=== PATIENT | female | born 1945 | race Caucasian/White ===

== ENCOUNTER 2021-05-07 13:35 | Outpatient (CLI) | payer MEDICARE, OTHER, SELFPAY ==
--- NOTE | ~2021-05-07 | MM_ITS ---
EXAMINATION: MM screening wu BI w jamar HISTORY: Screening mammogram TECHNIQUE: Craniocaudal and mediolateral oblique 3-D tomosynthesis images were obtained and synthetic 2-D images were generated. CAD analysis was submitted and interpreted. COMPARISON: No prior mammogram is available for comparison at this institution. BREAST PARENCHYMAL COMPOSITION: The breasts are almost entirely fatty. FINDINGS: RIGHT BREAST: There is no evidence of suspicious mass, calcification, or architectural distortion to suggest malignancy. LEFT BREAST: There is possible architectural distortion in the middle third of the lower-outer breast . IMPRESSION: 1. Possible left breast architectural distortion which may represent the patient's baseline however n o comparison is currently available. 2. Comparison with prior mammograms is necessary. BI-RADS Category 0: Incomplete: Needs comparison with prior mammograms. Reviewed, dictated and finalized at location A. IMPRESSION: 1. Possible left breast architectural distortion which may represent the patien t's baseline however no comparison is currently available. 2. Comparison with prior mammograms is necessary. BI-RADS Category 0: Incomplete: Needs comparison with prior mammograms.
== END 2021-05-07 13:36 | disposition home or self-care (01) ==
LOC: ANHIMG 13:47
DX: Z12.31 Encounter for screening mammogram for malignant neoplasm of breast (principal); R92.8 Other abnormal and inconclusive findings on diagnostic imaging of breast
CPT/HCPCS: 77063; 77067

== ENCOUNTER 2022-02-02 11:18 | Outpatient (CLI) | payer MEDICARE, SELFPAY ==
--- NOTE | ~2022-02-02 | XR_ITS ---
EXAMINATION: XR foot LT standing 2V, XR foot RT standing 2V DATE: 02/02/2022 11:40 INDICATION: Bilateral foot pain TECHNIQUE: 1. Standing dorsal plantar and lateral views of the left foot were obtained. 2. Standing dorsal plantar and lateral views of the right foot were obtained. COMPARISON: None. FINDINGS: Alignment is normal at both feet. No fracture. Mild osteoarthritis at the bilateral first metacarpoph alangeal and a few tarsometatarsal and interphalangeal joints. Moderate-sized bilateral plantar calca bruce spurs and additional small enthesophytes at the calcaneal insertions of the distal quadriceps te ndons. No erosions or periosteal reaction. Soft tissues are unremarkable. IMPRESSION: 1. 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 No acute osseous abnormality. Reviewed, dictated and finalized at location B. IMPRESSION: 1. 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 No acut e osseous abnormality.
== END 2022-02-02 11:19 | disposition home or self-care (01) ==
LOC: ANHIMG 11:24
PROVIDERS: PCP Internal Medicine; Visit Provider Internal Medicine
DX: M19.071 Primary osteoarthritis, right ankle and foot (principal); M19.072 Primary osteoarthritis, left ankle and foot
CPT/HCPCS: 73620

== ENCOUNTER 2022-03-20 14:30 | Outpatient (RCR) | payer MEDICARE, SELFPAY ==
--- NOTE | 2022-02-27 11:14 | PTOPEVAL ---
PHYSICAL THERAPY EVALUATION AND PLAN OF CARE 02-27-22 Thank you for referring Irene Carlos to [facility] for the diagnosis of B plantar fasciitis. Irene is scheduled to be seen for therapy? 2 x/week for 3 weeks. Please review, sign, date and return this plan of care TONYA. I agree with and certify that the following plan of care is medically necessary. Referring Physician Date Attending Provider: Mika Winter DPM Past Medical History Source of Past Medical History Patient Neurological History Hx Neurological Disorders No Significant History Cardiovascular History Hx Hypercholesterolemia Yes: meds control Hx Hypertension Yes: meds control Respiratory History Hx Respiratory Disorders No Significant History Gastrointestinal History Hx Gastrointestinal Disorders No Significant History Genitourinary History Hx Genitourinary Disorders No Significant History Musculoskeletal History Hx Arthritis Yes: stiffness B hips Hx Other Musculoskeletal Disorders Yes: plantar fascitis Endocrine History Hx Endocrine Disorders No Significant History Reproductive History Hx Other Reproductive Disorders Yes: hysterectomy- endometrial cancer-no additional treatment needed Evaluation Information Diagnosis B plantar fascia Onset Dec 2021 Subjective Information pain for the past few years Query Text:As Reported By Patient/ with feet; Family Diagnostic Tests X-Rays For This Problem Yes: mild OA 1st MCP;B mod size plantar calcaneal spurs Previous Treatments Previous Treatments For This Problem no previous treatment Prior Level of Function Activity Level (Last 3 Months) Occupation retired Activity of Daily Living Ability Independent Indoor/Home Mobility Independent Community Mobility Independent Stairs Ability Independent Functional Cognition (Planning, Shopping Independent , Taking Medications) Cooking Yes Cleaning Yes Laundry Yes Shopping Yes Driving Yes Comments Additional Prior Level of Function walking is limited due to pain Comments in both feet; has been walking for fitness and weight loss; previous walking 2 miles, 3-4 x/wk; now is not walking for fitness due to foot pain; is doing ankle exercises from foot dr--stretching calf and legs,just received them, done a few times; Pain A
--- NOTE | 2022-03-11 12:32 | PCPTNOTE ---
Patient called & cancelled scheduled appointment this date due to her allergies.
--- NOTE | 2022-03-20 15:29 | PTOPEVAL ---
PHYSICAL THERAPY DISCHARGE REPORT 03-20-22 Refer to the clinical summary below, for her status today, compared to the initial evaluation. The goals were partially achieved; Irene is independent with her home exercise program and understands methods to manage her pain. Thank you for referring Irene Carlos to [facility].? Please review, sign, date and return this Discharge report TONYA. I agree with and certify that the following plan of care is medically necessary. Referring Physician Date Attending Provider: Mika Winter DPM Subjective Information Irene reports: have improved Query Text:As Reported By Patient/ with the exercises, ice, Family ultrasound and therapy, but not back to doing walking for fitness; walking and being up on feet causes pain; taking less ibuprofen, was taking 2x/ day, now taking 2x/wk and mainly for L hip; tape does help some; Pain Assessment Pain Scale Pain Scale Used Numeric (1 - 10) Self Report Pain Assessment Bilateral Foot/Feet Reported Pain Level 0 Pain Description Burning,Stabbing Radicular Pain Location L foot- little on bottom of heel Pain Frequency Chronic,Intermittent Other Pain Description electrical jolt; R medial ankle, back of heel and bottom heel; Lowest Pain Intensity 0 Greatest Pain Intensity 8 Other Pain Aggravating Factors walking/stand tolerance 1 hour Pain Score Pain Score 0: Self Report Additional Pain Score Comments not sure if kinesiotape is helping or not; have not been using the night splints, due to warmer weather and could not tolerate them kinesiotape helps--applied strip R med>heel>lateral malleoli and L plantar fasciitis Y to bottom of foot; educated pt on how to apply tape; Interventions Used Interventions Used By Clinicians Education,Exercise,Taping Other Alleviating Interventions stretching,frozen water bottle ; ultrasound, ibuprofen PRN- few times a wk Gross Lower Extremity Range of Motion B ankle and toe ROM is WNL and Comments without pain Gross Lower Extremity Strength functional strength testing of B ankles: - standing B PF 20 reps with
== END 2022-03-23 11:14 | disposition home or self-care (01) ==
LOC: ANHPT 14:30
PROVIDERS: PCP Internal Medicine; Visit Provider Podiatrist Foot & Ankle Surgery
DX: M72.2 Plantar fascial fibromatosis (principal)
CPT/HCPCS: 97035; 97110; 97161

== ENCOUNTER 2022-06-17 10:08 | Outpatient (CLI) | payer MEDICARE, SELFPAY ==
--- NOTE | ~2022-06-17 | DEXA_ITS ---
Bone Density Report Name: ABDIFATAH WALDROP Age: 76 Sex: Female Ethnicity: White Date of : 1945 Indication: postmenopausal; screening for osteoporosis; parental hip fracture; height loss; cancer; hysterectomy; Referring Provider: KEIRY DUARTE Study: Bone densitometry was performed. Exam Date: June 17, 2022 Accession number: [id number] Bone Density: Region BMD T-score Z-score Classification AP Spine(L1-L4) 0.944 -0.9 1.5 Normal Femoral Neck (Left) 0.663 -1.7 0.4 Osteopenia Total Hip (Left) 0.797 -1.2 0.6 Osteopenia Femoral Neck (Right) 0.661 -1.7 0.4 Osteopenia Total Hip (Right) 0.808 -1.1 0.7 Osteopenia Total Hip Mean 0.803 -1.2 0.7 Osteopenia World Health Organization criteria for BMD impression classify patients as: Normal (T-score at or above -1.0), Osteopenia (T-score between -1.0 and -2.5), or Osteoporosis (T-score at or below -2.5). 10-year Fracture Risk(1): Major Osteoporotic Fracture 19% Hip Fracture 9.9% Reported Risk Factors: [place] (), Neck BMD=0.663, BMI=32.0, parental fracture (1) FRAX(R) Version 3.08. Fracture probability calculated for an untreated patient. Fracture probability may be lower if the patient has received treatment. Clinical Information Provided by Patient: Parent has had a hip fracture Has used the following medications: Vitamin D, Calcium Has the following medical conditions: Cancer, Hysterectomy Patient maximum height was 63.5 Menopause Age: 53 Onset of menses at age 13 Number of children 1 Impression: The patient has low bone mass, based on the Left Femoral Neck T-score. The patient has an estimated ten-year risk of hip fracture of 9.9% and an estimated ten-year risk of major fracture of 19%, based on the WHO FRAX algorithm. The patient has risk factors, including: parental hip fracture. Discussion: BONE DENSITY IS LOW AT ONE OR MORE SKELETAL SITES. THE PATIENT'S BMD AND CLINICAL RISK FACTORS CONTRIBUTE TO THIS PATIENT'S INCREASED RISK OF FRACTURE. This patient's lowest T-score is low at one or more skeletal sites. It meets the World Health Organization's (WHO) criteria for ?low bone mass? (T-score between -1.0 and -2.5). The patient's 10-year risk of hip fracture as calculated by FRAX exceeds the threshold where pharmacological therapy is recommended by the National Osteoporosis Foundation (NOF). However, all treatment decisions require clinical judgment and consideration of individual patient factors, including patient preferences, comorbidities, previous drug use, risk factors not captured in the FRAX model (e.g., frailty, falls, vitamin D deficiency, increased bone turnover, interval significant decline in bone density) and possible under or overestimation of fracture risk by FRAX. The patient should follow a healthful lifest
--- NOTE | ~2022-06-17 | MM_ITS ---
EXAMINATION: MM screening wu BI w jamar HISTORY: Screening mammogram TECHNIQUE: Craniocaudal and mediolateral oblique 3-D tomosynthesis images were obtained and synthetic 2-D images were generated. CAD analysis was submitted and interpreted. COMPARISON: 05/07/2021, 04/18/2020, 01/23/2019 bilateral screening mammogram examinations BREAST PARENCHYMAL COMPOSITION: The breasts are almost entirely fatty. FINDINGS: Scattered bilateral benign calcifications. There is no evidence of suspicious mass, calcifi cation, or architectural distortion to suggest malignancy in either breast. There has been no suspici ous interval change. IMPRESSION: 1. No mammographic evidence of malignancy. 2. Recommend routine screening mammography in one year. BI-RADS Category 2: Benign finding(s). Reviewed, dictated and finalized at location A.
== END 2022-06-17 10:09 | disposition home or self-care (01) ==
PROVIDERS: Visit Provider Student in an Organized Health Care Education/Training Program
DX: Z12.31 Encounter for screening mammogram for malignant neoplasm of breast (principal); Z78.0 Asymptomatic menopausal state; M85.851 Other specified disorders of bone density and structure, right thigh; M85.852 Other specified disorders of bone density and structure, left thigh
CPT/HCPCS: 77063; 77067; 77080

== ENCOUNTER 2022-09-15 00:08 | Day surgery (SDC) | payer MEDICARE, SELFPAY ==
[2022-09-07 13:28] VITALS: BMI 32.2
[2022-09-15 08:46] VITALS: BP 154/79; PULSE 74; RESP 16; TEMP 36.4; O2SAT 100
[2022-09-15] MEDS: LACTATED RINGERS 1,000 ML 150 ML IV CONT (08:48)
--- NOTE | 2022-09-15 09:10 | WPDANESEPPF ---
Anes - Initial Pre Proc Eval Procedure: Operation Date: 09/15/22 10:00 Proposed Procedures p Screening Colonoscopy - Osvaldo Alba MD Date/Time: 09/15/22 09:10 Surgeon: Osvaldo Alba MD Pre Op Diagnosis: hx of colon polyps Patient Data Age: 76 Gender: F Height: 1.59 m Weight: 80.7 kg Last Vital Signs Temp 97.5 F L 09/15/22 08:46 Pulse 74 09/15/22 08:46 Resp 16 09/15/22 08:46 BP 154/79 H 09/15/22 08:46 Pulse Ox 100 09/15/22 08:46 O2 Del Method Room Air 09/15/22 08:46 Allergies Allergy/AdvReac Type Severity Reaction Status Date / Time Penicillins Allergy Severe Hives Verified 09/15/22 08:44 Home Medications Medication Instructions Recorded Confirmed Type calcium carbonate 600 mg calcium 600 mg PO DAILY 06/04/21 09/15/22 History (1,500 mg) tablet (Calcium) cholecalciferol (vitamin D3) 25 25 mcg PO DAILY 06/04/21 09/15/22 History mcg (1,000 unit) capsule montelukast 10 mg tablet 10 mg PO DAILY #90 tabs 02/09/22 09/15/22 Rx azelastine 137 mcg (0.1 %) nasal 137 mcg (0.137 mL) intranasal Q12H 07/31/22 09/15/22 Rx spray aerosol PRN seasonal allergies #30 mL simvastatin 40 mg tablet 40 mg PO DAILY #90 tabs 07/31/22 09/15/22 Rx lisinopril 30 mg tablet 30 mg PO DAILY #30 tabs 09/10/22 09/15/22 Rx Patient hx anesthesia problems: none Family hx anesthesia problems: none Results Review: All pre-operative results and documents have been reviewed as part of the pre-operative evaluation. [facility] Past Medical History Medical History (Updated 09/10/22 @ 10:58 by Abdelrahman Armstrong MD) Colon polyp Essential hypertension History of 1 History of endometrial cancer Hx of vaginal delivery Neuropathy Seasonal allergies Surgical History Surgical History H/O: hysterectomy Family History Family History Father Lung cancer Hypertension Mother Depression Anxiety Other Breast cancer Stomach cancer Social History Social History Smoking status: Never smoker Second hand tobacco smoke exposure: Yes Alcohol intake: current Alcohol use details: once per month Substance use: never Substance use type: does not use Lack of Transportation: No Lack of Food: Never True Current Housing: I Have Housing Concerned About Future Housing: No Difficulty Paying Gas/Electric Bills: No Difficulty Paying for Meds: No Currently Unemployed: No Education: Bachelor's Degree Difficulty w/ Childcare or Family Care: No Living arrangements: with family Gender identity (if verbalized by the patient): Female Anes - Eval Final PreProcedure Day of Procedure 09/15/22 09:10 Patient weight: obese Heart: regular rate and rhythm Lungs: clear to auscultation Airway: Mallampati scale class II Neurological: alert and oriented Last oral intake: >/= 8 hours ASA classification: III Emergent: no Anesthetic plan: proceed Anesthesia type and monitoring: general GIVS and standard monitoring Results Review: All pre-operative results and documents have been reviewed as part of the pre-operative evaluation. Informed Consent: The patient's anesthetic plan and its attendant risks and benefits were discussed with the patient/family/POA. Questions were solicited and answers provided to the satisfaction of the patient/family/POA.
--- NOTE | 2022-09-15 09:26 | PM.HPGS ---
History of Present Illness History of Present Illness Consent: Risks, benefits, and alternatives have been discussed and questions answered. Patient agrees to proceed with procedure. Chief complaint: hx of colon polyps Narrative: Irene Carlos is a 76 year old female with colon polyps 3 years ago Review of Systems Constitutional: Constitutional: Denies headache(s) and Denies weakness Eyes: Eyes: Denies blurry vision ENT: Reports Normal hearing present, Denies headache(s) and Denies neck pain Cardiovascular: Cardiovascular: Denies chest pain and Denies dyspnea Respiratory: Respiratory: Denies dyspnea Gastrointestinal: Gastrointestinal: Reports no additional gastrointestinal complaints Genitourinary: Genitourinary: Denies dysuria Musculoskeletal: Musculoskeletal: Denies neck pain Integumentary/Breasts: Skin/Breast: Denies dry skin Neurologic: Reports Normal hearing present, Denies headache(s) and Denies weakness Psychiatric: Psychiatric: Denies anxiety Endocrine: Endocrine: Denies change in body appearance Hematologic/Lymphatic: Hematologic/Lymphatic: Denies easy bleeding Allergic/Immunologic: Allergic/Immunologic: Denies urticaria PMFSH Past Medical History Medical History (Updated 09/15/22 @ 09:26 by Osvaldo Alba MD) Colon polyp Essential hypertension History of 1 History of endometrial cancer Hx of vaginal delivery Neuropathy Seasonal allergies Surgical History Surgical History H/O: hysterectomy Family History Family History Father Lung cancer Hypertension Mother Depression Anxiety Other Breast cancer Stomach cancer Social History Social History Smoking status: Never smoker Second hand tobacco smoke exposure: Yes Alcohol intake: current Alcohol use details: once per month Substance use: never Substance use type: does not use Lack of Transportation: No Lack of Food: Never True Current Housing: I Have Housing Concerned About Future Housing: No Difficulty Paying Gas/Electric Bills: No Difficulty Paying for Meds: No Currently Unemployed: No Education: Bachelor's Degree Difficulty w/ Childcare or Family Care: No Living arrangements: with family Gender identity (if verbalized by the patient): Female Meds Home Medications and Allergies Home Medications Medication Instructions Recorded Confirmed Type calcium carbonate 600 mg calcium 600 mg PO DAILY 06/04/21 09/15/22 History (1,500 mg) tablet (Calcium) cholecalciferol (vitamin D3) 25 25 mcg PO DAILY 06/04/21 09/15/22 History mcg (1,000 unit) capsule montelukast 10 mg tablet 10 mg PO DAILY #90 tabs 02/09/22 09/15/22 Rx azelastine 137 mcg (0.1 %) nasal 137 mcg (0.137 mL) intranasal Q12H 07/31/22 09/15/22 Rx spray aerosol PRN seasonal allergies #30 mL simvastatin 40 mg tablet 40 mg PO DAILY #90 tabs 07/31/22 09/15/22 Rx lisinopril 30 mg tablet 30 mg PO DAILY #30 tabs 09/10/22 09/15/22 Rx Allergies Allergy/AdvReac Type Severity Reaction Status Date / Time Penicillins Allergy Severe Hives Verified 09/15/22 08:44 Vital Signs Vital Signs - 24 hr 09/15/22 08:46 Temperature 97.5 F L Pulse Rate 74 Respiratory Rate 16 Blood Pressure 154/79 H Pulse Oximetry 100 Oxygen Delivery Room Air Exam Const: General: comfortable and no acute distress HENMT: Face/Nose/Sinus: Normal nares present Eyes: General: appearance normal, both eyes and all related structures Neck: Neck: no JVD Resp: Auscultation: clear to auscultation bilaterally Cardio: Rate: regular rate Rhythm: regular rhythm GI: Inspection: non-distended GI Palp: Yes Soft to palpation Skin: General skin exam: normal color Neuro: General: gait normal Speech: normal speech Extrem: General: normal to inspectio
[2022-09-15 09:47] VITALS: BP 154/86; PULSE 87; RESP 22; O2SAT 96
[2022-09-15 09:57] VITALS: BP 112/74; PULSE 73; RESP 16; O2SAT 100
[2022-09-15 10:07] VITALS: BP 131/78; PULSE 70; RESP 12; O2SAT 100
== END 2022-09-15 10:10 | disposition home or self-care (01) ==
PROVIDERS: PCP Internal Medicine; Visit Provider Internal Medicine Gastroenterology
PROC: 0DJD8ZZ Inspection of Lower Intestinal Tract, Via Natural or Artificial Opening Endoscopic (ICD-10-PCS; CPT 45378; principal; 2022-09-15 10:00)
DX: Z12.11 Encounter for screening for malignant neoplasm of colon (principal); D12.2 Benign neoplasm of ascending colon; K57.30 Diverticulosis of large intestine without perforation or abscess without bleeding; K64.8 Other hemorrhoids; I10 Essential (primary) hypertension; G62.9 Polyneuropathy, unspecified; Z85.42 Personal history of malignant neoplasm of other parts of uterus; E66.9 Obesity, unspecified; Z68.32 Body mass index [BMI] 32.0-32.9, adult
CPT/HCPCS: 45385; 88305; J2704; J7120

== ENCOUNTER 2023-06-07 09:45 | Outpatient (RCR) | payer MEDICARE, SELFPAY ==
--- NOTE | 2023-05-21 09:39 | OTOPEVAL1 ---
Assessment and note entered by Alexander Frias, KOBY/Lb, CHT Evaluation Information Assessment Status Evaluation Diagnosis Pain in unspecified finger Subjective Information Patient presenting today reporting pain in her right thumb. She is right hand dominant. She states she experiences pain daily and that the pain hasn't gotten down to 0/10 for a while . She uses her hands frequently to quilt, sewing, holding her iPad, and cooking. Reports today is a good day , having low amount of pain. But states it does flair up and she has used ice on her hand in the past. Reported Pain Level Pain Score 2: Self Report Assessment OT Clinical Summary Patient referred to outpatient OT with pain in her right thumb. Pain is consistent with OA. 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 Skilled OT indicated for HEP instruction/progression, modalities, manual therapy, orthotic intervention for thumb support during functional tasks, and joint protection education. Plan of Care Interventions Therapeutic Exercise,Manual Therapy,Therapeutic Activities,Hot Pack/Cold Pack,Check Out for Orthotic/Pr,Paraffin OT Services Indicated Yes Treatment Frequency and 1x/week for 4 weeks Duration These treatments will address the objective and functional deficits as defined above. The patient will be advanced safely and appropriately in order for the patient to progress towards his/her prior level of function. Additional exercises will be introduced and as well as a comprehensive home exercise program upon discharge, if needed, ?to ensure carryover of functional gains achieved in the clinic. This treatment plan has been reviewed and agreement upon by the patient.
--- NOTE | 2023-05-21 09:39 | OPREHPOC ---
Outpatient Therapy Plan of Care This is a Multidisciplinary Plan of Care that may contain components documented by all disciplines (PT, OT, and ST.) OT Problem 1 OT Problem #1 Knowledge Deficit OT Goal 1 Goal 1. Patient to be independent with instructed materials. Target Visit 5 OT Problem 2 OT Problem #2 Pain OT Goal 1 Goal 1. Patient to report reduced pain in the right thumb, reporting pain at worst 4/10 or less. Target Visit 5 OT Problem 3 OT Problem #3 Impaired Range of Motion OT Goal 1 Goal 1. Patient to be able to move thumb through ROM exercises x10 reps without pain. Target Visit 5
--- NOTE | 2023-06-07 10:39 | OTOPDC ---
Assessment and note entered by Alexander Frias, KOBY/Lb, CHT Evaluation Information Assessment Status Discharge Diagnosis Right thumb pain Subjective Information Patient presenting today reporting she is doing well with therapy and understands her home program well and is ready for discharge. She reports instances of having no pain in the thumb. Reports progress with therapy so far. ROM and service station manager/pinch strengths are all WFL. Reported Pain Level Pain Score 1: Self Report Additional Pain Score Comments Typically having no pain at rest. Occasionally gets up to 3/10 at worst Assessment OT Clinical Summary Patient referred to outpatient OT with pain in her right thumb. Pain is consistent with OA. OT has been working on improved flexibility of the 1st web space and CMC stabilization exercises. She is overall having less pain, but continues to have 3/ /10 pain with sewing and embroidery. She reports she is independent with all materials and is ready for discharge. No further skilled OT indicated at this time. Plan of Care OT Services Indicated No
== END 2023-06-07 13:08 | disposition home or self-care (01) ==
LOC: ANHOT 09:45
PROVIDERS: PCP Family Medicine; Visit Provider Family Medicine
DX: M79.646 Pain in unspecified finger(s) (principal)
CPT/HCPCS: 97018; 97110; 97140; 97165

== ENCOUNTER 2023-09-28 09:52 | Outpatient (CLI) | payer MEDICARE, SELFPAY ==
--- NOTE | ~2023-09-28 | MM_ITS ---
EXAMINATION: MM screening wu BI w jamar HISTORY: Screening mammogram TECHNIQUE: Craniocaudal and mediolateral oblique 3-D tomosynthesis images were obtained and synthetic 2-D images were generated. CAD analysis was submitted and interpreted. COMPARISON: No prior mammogram is available for comparison at this institution. BREAST PARENCHYMAL COMPOSITION: The breasts are almost entirely fatty. FINDINGS: Scattered bilateral benign calcifications. There is no evidence of suspicious mass, calcifi cation, or architectural distortion to suggest malignancy in either breast. There has been no suspici ous interval change. IMPRESSION: 1. No mammographic evidence of malignancy. 2. Recommend routine screening mammography in one year. BI-RADS Category 2: Benign finding(s). Reviewed, dictated and finalized at location A. NING PROGRAM ASSISTANT
== END 2023-09-28 09:53 | disposition home or self-care (01) ==
PROVIDERS: PCP Family Medicine; Visit Provider Registered Nurse
DX: Z12.31 Encounter for screening mammogram for malignant neoplasm of breast (principal)
CPT/HCPCS: 77063; 77067

== ENCOUNTER 2024-11-14 10:07 | Outpatient (CLI) | payer MEDICARE, SELFPAY ==
--- NOTE | ~2024-11-14 | MM_ITS ---
EXAMINATION: MM screening wu BI w jamar HISTORY: Screening mammogram TECHNIQUE: Craniocaudal and mediolateral oblique 3-D tomosynthesis images were obtained and synthetic 2-D images were generated. CAD analysis was submitted and interpreted. COMPARISON: 09/28/2023, 06/17/2022, 05/07/2021 BREAST PARENCHYMAL COMPOSITION:Not Dense. The breasts are almost entirely fatty FINDINGS: No suspicious mass, calcification, or architectural distortion are identified in either vishal ast to suggest malignancy. There has been no suspicious interval change. IMPRESSION: No mammographic evidence of malignancy. Recommend routine screening mammography in one year. BI-RADS Category 1: Negative Reviewed, dictated and finalized at location . ALT HEATER OPERATOR
== END 2024-11-14 10:08 | disposition home or self-care (01) ==
PROVIDERS: PCP Family Medicine; Visit Provider Nurse Practitioner Obstetrics & Gynecology
DX: Z12.31 Encounter for screening mammogram for malignant neoplasm of breast (principal)
CPT/HCPCS: 77063; 77067

== ENCOUNTER 2024-11-20 10:42 | Outpatient (CLI) | payer MEDICARE, OTHER, SELFPAY ==
--- NOTE | ~2024-11-20 | XR_ITS ---
EXAMINATION: XR sacrum coccyx min 2V DATE: 11/20/2024 10:59 INDICATION: Sacrococcygeal disorders, not elsewhere classified. TECHNIQUE: 3 views of the sacrum and coccyx were obtained. COMPARISON: None. FINDINGS: Alignment is normal. No fracture. There is severe lumbar spondylosis. There is mild osteoar thritis of the hip joints and sacroiliac joints. There are surgical clips in the abdomen and pelvis. IMPRESSION: 1. No fracture. Reviewed, dictated and finalized at location B. CLE LEASING AND RENTAL MANAGER IMPRESSION: 1. No fracture.
== END 2024-11-20 10:43 | disposition home or self-care (01) ==
LOC: MICIMG 10:45
PROVIDERS: PCP Family Medicine; Visit Provider Family Medicine
DX: M53.3 Sacrococcygeal disorders, not elsewhere classified (principal)
CPT/HCPCS: 72220

== ENCOUNTER 2024-12-27 07:51 | Outpatient (CLI) | payer MEDICARE, SELFPAY ==
--- NOTE | ~2024-12-27 | DEXA_ITS ---
Bone Density Report Name: ABDIFATAH WALDROP Age: 79 Sex: Female Ethnicity: White Date of : 1945 Indication: osteopenia; parental hip fracture; hysterectomy; Referring Provider: JOSUÉ LUCIANO Study: Bone densitometry was performed. Exam Date: December 27, 2024 Accession number: [id number] Bone Density: Region BMD T-score Z-score Classification AP Spine(L1-L4) 1.026 -0.2 2.4 Normal Femoral Neck (Left) 0.704 -1.3 0.9 Osteopenia Total Hip (Left) 0.876 -0.5 1.4 Normal Femoral Neck (Right) 0.706 -1.3 0.9 Osteopenia Total Hip (Right) 0.826 -1.0 1.0 Normal Total Hip Mean 0.851 -0.8 1.2 Normal World Health Organization criteria for BMD impression classify patients as: Normal (T-score at or above -1.0), Osteopenia (T-score between -1.0 and -2.5), or Osteoporosis (T-score at or below -2.5). 10-year Fracture Risk(1): Major Osteoporotic Fracture 19% Hip Fracture 9.5% Reported Risk Factors: [place] (), Neck BMD=0.704, BMI=32.4, parental fracture (1) FRAX(R) Version 3.08. Fracture probability calculated for an untreated patient. Fracture probability may be lower if the patient has received treatment. Previous Exams: Region Exam Age BMD T-score BMD Change BMD Change Date g/cm2 vs Baseline vs Previous AP Spine (L1-L4) 12/27/2024 79 1.026 -0.2 0.082 (8.7%)# 0.082 (8.7%)# 06/17/2022 76 0.944 -0.9 Total Hip(Left) 12/27/2024 79 0.876 -0.5 0.079 (9.9%)# 0.079 (9.9%)# 06/17/2022 76 0.797 -1.2 Total Hip(Right) 12/27/2024 79 0.826 -1.0 0.017 (2.2%)# 0.017 (2.2%)# 06/17/2022 76 0.808 -1.1 *Denotes significance at 95% confidence level, LSC for AP Spine = 0.022 g/cm2, LSC for Total Hip = 0.027 g/cm2 # Denotes dissimilar scan types or analysis methods Clinical Information Provided by Patient: Parent has had a hip fracture Has used the following medications: Vitamin D, Calcium Has the following medical conditions: Hysterectomy Patient maximum height was 63 Menopause Age: 53 Drinks caffeinated beverages Onset of menses at age 13 Number of children 1 Impression: The patient has low bone mass, based on the Left Femoral Neck T-score. The patient has an estimated ten-year risk of hip fracture of 9.5% and an estimated ten-year risk of major fracture of 19%, based on the WHO FRAX algorithm. The patient has risk factors, including: parental hip fracture. No significant bone loss was observed. Discussion: BONE DENSITY IS LOW AT ONE OR MORE SKELETAL SITES. THE PATIENT'S BMD AND CLINICAL RISK FACTORS CONTRIBUTE TO THIS PATIENT'S INCREASED RISK OF FRACTURE. This patient's lowest T-score is low at one or more skeletal sites. It meets the World Health Organization's (WHO) criteria for ?low bone mass? (T-score between -1.0 and -2.5). The patient's 10-year risk of hip fracture as calculated by FRAX exceeds the threshold where pharmacological therapy is recommended by the National Osteoporosis Foundation (NOF). However, all treatment decisions require clinical judgment and consideration of individual patient factors, including patient preferences, comorbidities, previous drug use, risk factors not captured in the FRAX model (e.g., frailty, falls, vitamin D deficiency, increased bone turnover, interval significant decline in bone density) and possible under or overestimation of fracture risk by FRAX. The patient should follow a healthful lifestyle (good nutrition with adequate calcium and vitamin D, and appropriate weight-bearing exercise). Follow-Up: Consider a repeat BMD and Vertebral Fracture Assessment (VFA) exam in 2 years or sooner if medically necessary, to reassess this patient's status. Reported by: LAURI on 12/27/2024 8:25:00 AM. Reviewed, dictated and finalized at location A. DENG
--- OUTSIDE RECORDS SUMMARY | 2024-12-27 08:00 | XMS_ITS | Clinical Summary ---
Author Organization [facility] Address [address] [place] [address] Phone Care Team Providers Care Product Development Consultant Name Role Phone Hari Diaz MD Primary Care Provider Medications sodium, potassium and magnesium sulfates (SUPREP BOWEL PREP KIT) 17.5-3.13-1.6 gram Recon Soln Take 177 mL by mouth see administration instructions. Take as directed by instructions given in the mail. 354 mL 9 Active Family History Medical History Relation Name Comments Breast Cancer Maternal Aunt Colon Cancer Neg Hx Relation Name Status Comments Maternal Aunt Social History Tobacco Use Types Packs/Day Years Used Date Smoking Tobacco: Never Assessed Comments Unknown Sex and Gender Information Value Date Recorded Sex Assigned at Not on file Legal Sex Female 5:09 PM [employer] Gender Identity Not on file Sexual Orientation Not on file Plan of Treatment Health Maintenance Due Date Last Done Comments DTAP/TDAP/TD VACCINES (1 - Tdap) 1965 PNEUMOCOCCAL VACCINE 65+ YEA RS (1 of 1 - PCV) 1996 ZOSTER VACCINE (1 of 2) 1996 RSV VACCINE (60+ or ) (1 - 1-dose 75+ series) 2021 COLORECTAL SCREENING 09/04/2022 09/04/2019, 09/04/20 19 INFLUENZA VACCINE (#1) 2024 OSTEOPOROSIS SCREENING Completed 02/28/2019 Procedures Procedure Name Priority Date/Time Associated Diagnosis Comments ENDOSCOPY, COLON, SCREENING Routine 09/04/2019 XR DEXA BONE DENSITY AXIAL 1 OR MORE SITES Routine 02/28/2019 9:38 AM CDT Osteopenia of spine from Last 3 Months or Most Recently Relevant to Health Maintenance Results * ENDOSCOPY, COLON, SCREENING (09/04/2019) Jerome Venegas MD GI PROCEDURE ORDERABLES Fin al Result * XR DEXA BONE DENSITY AXIAL 1 OR MORE SITES (02/28/2019 9:38 AM CDT) Anatomical Region Laterality Modality Computed Radiogr aphy 02/28/2019 9:39 AM CDT Impressions 02/28/2019 2:09 PM CDT IMPRESSION: 1. Osteopenia. DICTATION LOCATION: [address] [place] Narrative 02/28/2019 2:09 PM CDT DEXA BONE DENSITOMETRY DATE: 02/28/2019 9:38 AM HISTORY: . Postmenopausal. Currently taking calcium supplementation. Caffeine/alcohol consumption. Family history of osteoporosis. COMPARISON: 10/19/2012 FINDINGS: Left femoral neck and total femur bone mineral density are 0.7383 g/sq cm and 0.8278 g/sq cm with respective T-scores of -2.13 and -1.04. Total femur bone mineral density has decreased by 1.3% since 10/19/2012. Left femoral neck bone mineral density has decreased by 3.7%. Total lumbar spine bone mineral density is 0.9918 g/sq cm with a T-score of -1.04. Total lumbar spine bone mineral density has increased by 3.1% since 10/09/2012. These T-scores are considered osteopenic according to World Health Organization classification. Procedure Note Power Valle MD - 02/28/2019 DEXA BONE DENSITOMETRY DATE: 02/28/2019 9:38 AM HISTORY: . Postmenopausal. Currently taking calcium supplementation. Caffeine/alcohol consumption. Family history of osteoporosis. COMPARISON: 10/19/2012 FINDINGS: Left femoral neck and total femur bone mineral density are 0.7383 g/sq cm and 0.8278 g/sq cm with respective T-scores of -2.13 and -1.04. Total femur bone mineral density has decreased by 1.3% since 10/19/2012. Left femoral neck bone mineral density has decreased by 3.7%. Total lumbar spine bone mineral density is 0.9918 g/sq cm with a T-score of -1.04. Total lumbar spine bone mineral density has increased by 3.1% since 10/09/2012. These T-scores are considered osteopenic according to World Health Organization classification. IMPRESSION: 1. Osteopenia. DICTATION LOCATION: Location [address] [place] [address] Hari Diaz MD DIAGNOSTIC IMAGING ORDERABLE S Final Result from Last 3 Months or Most Recently Relevant to Health [place] [address] MEDICARE PART A AND B [facility] MEDICARE SUPPLEMENT Care Teams Product Development Consultant Relationship Specialty Start Date End Date Hari Diaz MD [id number] [place] [address] PCP - General 11/23/13
== END 2024-12-27 07:52 | disposition home or self-care (01) ==
LOC: ANHIMG 07:52
PROVIDERS: PCP Family Medicine; Visit Provider Family Medicine
DX: M85.89 Other specified disorders of bone density and structure, multiple sites (principal); Z78.0 Asymptomatic menopausal state
CPT/HCPCS: 77080

== ENCOUNTER 2025-01-22 10:00 | Emergency (ER) | payer OTHER, MEDICARE, SELFPAY ==
[2025-01-22 10:10] VITALS: BP 130/83; PULSE 82; RESP 18; TEMP 37.8; O2SAT 97
[2025-01-22 10:15] VITALS: PULSE 82; RESP 18; O2SAT 97
--- NOTE | 2025-01-22 10:24 | ED_ITS ---
HPI - URI/Sore Throat General Chief Complaint: Upper Respiratory Infection Stated Complaint: sinus congestion Time Seen by Provider: 01/22/25 10:20 Source: patient and RN notes reviewed Mode of arrival: ambulatory Limitations: no limitations History of Present Illness HPI Narrative: Patient presents today with a 3 day history of nasal congestion, fatigue, fever up to 102.4, slight cough with occasional wheezing. Wheezing is worse at night. She has tried Mucinex and ibuprofen with some relief. No history of asthma or COPD. She is a nonsmoker. Denies any known sick contacts. Related Data Home Medications ?Medication ?Instructions ?Recorded ?Confirmed ?Last Taken ?Type calcium carbonate (Calcium 600) 600 mg PO DAILY 06/04/21 08/18/24 Unknown History cholecalciferol (vitamin D3) 25 25 mcg PO DAILY 06/04/21 08/18/24 Unknown History mcg (1,000 unit) capsule Allergies Allergy/AdvReac Type Severity Reaction Status Date / Time Penicillins Allergy Severe Hives Verified 01/22/25 10:04 Review of Systems Review of Systems: CONSTITUTIONAL: Denies body aches,chills, or sweats.+ fatigue fever EYES: Denies visual changes, redness, or discharge. ENT: Denies rhinorrhea, sore throat, or otalgia.+ congestion CARDIOVASCULAR: Denies chest pain, palpitations, or edema. RESPIRATORY: + cough, wheezing. GASTROINTESTINAL: Denies abdominal pain, nausea, vomiting, or diarrhea. GENITOURINARY: Denies dysuria or hematuria. SKIN: Denies rash, itching, or wounds. MUSCULOSKELETAL: Denies back pain, joint pain, or myalgia. NEUROLOGIC: Denies headache, numbness, tingling, or weakness. PSYCH: Denies depression or anxiety. [facility] Past Medical History Medical History Colon polyp Hx of vaginal delivery History of 1 Seasonal allergies Neuropathy History of endometrial cancer Essential hypertension Surgical History Surgical History H/O: hysterectomy Family History Family History Father Lung cancer Hypertension Mother Depression Anxiety Other Breast cancer Stomach cancer Social History Social History Smoking status: Never smoker Second hand tobacco smoke exposure: Yes Alcohol intake: current Alcohol use details: once per month Substance use: never Substance use type: does not use Lack of Transportation: No Lack of Food: Never True Current Housing: I Have Housing Concerned About Future Housing: No Difficulty Paying Gas/Electric Bills: No Difficulty Paying for Meds: No Currently Unemployed: No Education: Bachelor's Degree Difficulty w/ Childcare or Family Care: No Living arrangements: with family Gender identity (if verbalized by the patient): Female Comments At time of signature, I have reviewed and agree with nursing past medical, surgical, social and family history unless otherwise noted. Please see nursing chart for further information. There is no relevant family history pertinent to the presenting complaint Exam Narrative: GENERAL: Mildly ill-appearing, well-nourished, and in no acute distress. HEAD: Normocephalic, atraumatic. EYES: EOMI. No redness or drainage. Conjunctivae normal. ENT: Mucous membranes pink and moist. Nares mildly congested. No rhinorrhea. TMs normal bilaterally. Throat normal. Uvula midline. NECK: Normal AROM. Supple. No lymphadenopathy. CHEST: No respiratory distress. Clear to auscultation. HEART: Regular rate and rhythm. No murmur appreciated. EXTREMITIES: Normal range of motion. No edema. SKIN: Warm, dry, no rash. Capillary refill normal. Normal skin turgor. NEURO: No focal deficits. Alert and oriented x3. Gait steady. PSYCH: Normal affect. No signs of depression or anxiety. Course Course Level of Care: Express Care Visit Vital Signs Vital signs: Vital Signs Temperature 100.1 F H 01/22/25 10:10 Pulse Rate 82 01/22/25 10:10 Respiratory Rate 18 01/22/25 10:10 Blood Pressure 130/83 01/22/25 10:10 Pulse Oximetry 97 01/22/25 10:10 Oxygen Delivery Room Air 01/22/25 10:10 Temperature 100.1 F H 01/22/25 10:10 Pulse Rate 82 01/22/25 10:15 Respiratory Rate 18 01/22/25 10:15 Blood Pressure 130/83 01/22/25 10:10 Pulse Oximetry 97 01/22/25 10:15 Oxygen Delivery Room Air 01/22/25 10:10 Reviewed MDM - URI/Sore Throat MDM Narrative Medical decision making narrative: COVID and influenza negative. Symptoms likely viral in etiology. Discussed [id number] medication use and duration of illness. No prescription medica tions indicated at this time. Anticipatory guidance given. Differential Diagnosis Differential diagnosis: Likely upper respiratory infection, sinusitis, viral infection, influenza and other (The COVID) Lab Data Attestation: I reviewed the patient's lab results. Labs: Lab Results 01/22/25 Range/Units 10:41 POC Influenza A Ag Negative (Negative) POC Influenza B Ag Negative (Negative) POC SARS CoV-2 Ag Negative (Negative) Critical Care Time Critical Care Time Critical Care Time: No Discharge Plan Discharge Clinical Impression: Upper respiratory infection Qualifiers: URI type: unspecified URI Qualified Code(s): J06.9 - Acute upper respiratory infection, unspecified Patient Disposition: Home, Self-Care Condition: Stable Instructions: Upper Respiratory Infection (DC) Additional Instructions: Your influenza and COVID tests are both negative today. Your Symptoms are likely due to a viral illness, which is not treated with antibiotics. Virus symptoms can last for up to 7-10days. Take Tylenol or ibuprofen for pain or fever. Rest and stay hydrated. Follow up with your PCP in 7 days if symptoms are not improving. Go to the ER immediately if you develop shortness of breath, difficulty swallowing, persistent fever greater than 100.3, or any other concerning symptoms. Your blood pressure was elevated above 120/80 today at Urgent Care. This puts you above the threshold for follow up. Please schedule a followup visit with your personal physician as soon as possible, for further evaluation and treatment. Even blood pressure exceeding 120/80 may indicate pre-hypertension. Patient Language: Moldovan Prescriptions: No Action ipratropium bromide 42 mcg (0.06 %) spray,non-aerosol 2 spray intranasal TID Qty: 15 5RF Rx Instructions: administer into each nostril calcium carbonate [Calcium 600] 600 mg calcium (1,500 mg) tablet 600 mg PO DAILY cholecalciferol (vitamin D3) 25 mcg (1,000 unit) capsule 25 mcg PO DAILY simvastatin 40 mg tablet 40 mg PO DAILY Qty: 90 1RF lisinopril 30 mg tablet See Rx Instructions .ROUTE .COMPLEX Qty: 90 0RF Dose Instruction: TAKE 1 TABLET BY MOUTH EVERY DAY Rx Instructions: TAKE 1 TABLET BY MOUTH EVERY DAY amlodipine 5 mg tablet See Rx Instructions .ROUTE .COMPLEX Qty: 90 0RF Dose Instruction: TAKE 1 TABLET BY MOUTH EVERY DAY Rx Instructions: TAKE 1 TABLET BY MOUTH EVERY DAY montelukast 10 mg tablet See Rx Instructions .ROUTE .COMPLEX Qty: 90 1RF Dose Instruction: TAKE 1 TABLET BY MOUTH DAILY Rx Instructions: TAKE 1 TABLET BY MOUTH DAILY Follow-up/Referrals: Channing Stroud MD [Primary Care Provider] - Time of Disposition: 10:45
[2025-01-22 10:43] LABS: EDCOVIDSCREEN Negative (Negative); EDINFLUASCREEN Negative (Negative); EDINFLUBSCREEN Negative (Negative)
== END 2025-01-22 10:50 | disposition home or self-care (01) ==
PROVIDERS: Emergency Provider Nurse Practitioner; PCP Family Medicine
DX: J06.9 Acute upper respiratory infection, unspecified (principal); Z20.822 Contact with and (suspected) exposure to COVID-19; I10 Essential (primary) hypertension; G62.9 Polyneuropathy, unspecified; Z85.42 Personal history of malignant neoplasm of other parts of uterus
CPT/HCPCS: 87426; 87804; 99212; G0463

== ENCOUNTER 2025-05-29 11:42 | Outpatient (CLI) | payer MEDICARE, OTHER, SELFPAY ==
--- NOTE | ~2025-05-29 | XR_ITS ---
XR hip LT min 2V 05/29/2025 11:54 Indication: Left hip pain Procedure: 2 views left hip Comparison: No prior studies for comparison. Findings: There is mild osteoarthritis of left hip. No fracture, subluxation or dislocation. No soft tissue abnormality. Impression: 1: Mild osteoarthritis of the left hip. Reviewed, dictated and finalized at location B. Impression: 1: Mild osteoarthritis of the left hip.
== END 2025-05-29 11:43 | disposition home or self-care (01) ==
LOC: MICIMG 11:44
PROVIDERS: PCP Family Medicine; Visit Provider Family Medicine
DX: M16.12 Unilateral primary osteoarthritis, left hip (principal)
CPT/HCPCS: 73502

== ENCOUNTER 2025-07-31 11:00 | Outpatient (RCR) | payer MEDICARE, OTHER, SELFPAY ==
--- NOTE | 2025-06-29 11:53 | OPREHPOC ---
Outpatient Therapy Plan of Care This is a Multidisciplinary Plan of Care that may contain components documented by all disciplines (PT, OT, and ST.) PT Problem 1 PT Problem #1 Knowledge Deficit PT Goal 1 Goal / Goal Update 1* independent with HEP 2* pt demonstrate correct body mechanics with lifting from the floor Target Visit 8 PT Problem 2 PT Problem #2 Pain PT Goal 1 Goal / Goal Update 1* pt reports pain rating at worst of 4/10 2* pt report times of NO pain Target Visit 8 PT Problem 3 PT Problem #3 Impaired Strength PT Goal 1 Goal / Goal Update 1* increase strength of bilateral hip abduction and hip extension to 4+/5 2* single leg standing L x 15 seconds with good stability Target Visit 8 PT Problem 4 PT Problem #4 Impaired Flexibility PT Goal 1 Goal / Goal Update * pt report with supine piriformis stretch L = R tightness
--- NOTE | 2025-06-29 11:54 | PTOPEVAL1 ---
Assessment and note entered by Thea Mya, PT Evaluation Information Assessment Status Evaluation ICD-10 Condition Codes (PT) Pain in low back M54.50,Pain in left hip M25.552 Onset April 2025 Subjective Information starting having pain in L hip and more back pain, no recent trauma or injury; In November did have a fall but not problems after that; more problems with stairs- have to hold onto the railing now, before did not have to use the railing; more pain with walking for fitness more pain in the end of the day more pain in back and hip; x ray: L hip- mild OA; lumbar- severe lumbar spondylosis; does not report any history of back pain, only intermittent aches when overdo things. activity: independent with all home and self care tasks, active; have recumbent bicycle and try to walk for fitness, about 30-40 minutes Reported Pain Level Pain Score 6: Self Report Additional Pain Score Comments pain range in the past week: 2-7/10; back- stabbing pain and L hip- burning pain, strained, sore in hip increase pain: stairs, lie L side, end of day, standing 1 hour; sitting 45 minutes decrease pain: ibuprofen, change positions, walking report with sleeping, issues with lying on her L side, but does not sleep well in general, hip does not wake her up have not use heat/ice--instruct on PRN use 10-15 minutes education and discussed balance of activity/rest to manage pain Assessment PT Clinical Summary Irene has the diagnosis of L hip and back pain She reports onset a few months ago. She does not have a history of back pain. X ray reports: lumbar- severe lumbar spondylosis and L hip mild OA. Self assessment LE functional scale rating of 35% limitation in activity level. She reports pain increases on stairs, standing or walking too long, lie on L side. Normally, she is active and does walking and stretching exercises for fitness. With the evaluation: she has slight tightness in L piriformis muscle; weakness over R and L hip abduction and extension muscles; prone on elbows decreases her pain and only testing motion that increased her back and hip pain was supine trunk rotation with knees to R. Medical history includes endometrial cancer--will not use US or electrical stim treatment. Skilled PT services are indicated for modalities to decrease pain, therapeutic exercises to increase strength of trunk and hips, with education for HEP, body mechanics, pain management and posture. Plan of Care Interventions Hot Pack/Cold Pack,Manual Therapy,Mechanical Traction,Neuro Re-education,Patient/Caregiver Education,Therapeutic Activities,Therapeutic Exercise,Other Other Interventions taping PT Services Indicated Yes Treatment Frequency and 1-2x/wk for 8 visits Duration These treatments will address the objective and functional deficits as defined above. The patient will be advanced safely and appropriately in order for the patient to progress towards his/her prior level of function. Additional exercises will be introduced and as well as a comprehensive home exercise program upon discharge, if needed, ?to ensure carryover of functional gains achieved in the clinic. This treatment plan has been reviewed and agreement upon by the patient.
--- NOTE | 2025-07-31 11:50 | OPREHPOC ---
Outpatient Therapy Plan of Care This is a Multidisciplinary Plan of Care that may contain components documented by all disciplines (PT, OT, and ST.) PT Problem 1 PT Problem #1 Knowledge Deficit PT Goal 1 Goal / Goal Update 1* independent with HEP 2* pt demonstrate correct body mechanics with lifting from the floor 07-31-25 d/c goals met Target Visit 8 Progress Met PT Problem 2 PT Problem #2 Pain PT Goal 1 Goal / Goal Update 1* pt reports pain rating at worst of 4/10 2* pt report times of NO pain 07-31-25 d/c goals met Target Visit 8 Progress Met PT Problem 3 PT Problem #3 Impaired Strength PT Goal 1 Goal / Goal Update 1* increase strength of bilateral hip abduction and hip extension to 4+/5 2* single leg standing L x 15 seconds with good stability 07-31-25 d/c goals met Target Visit 8 Progress Met PT Problem 4 PT Problem #4 Impaired Flexibility PT Goal 1 Goal / Goal Update * pt report with supine piriformis stretch L = R tightness 07-31-25 d/c goal met Target Visit 8 Progress Met
--- NOTE | 2025-07-31 11:50 | PTOPDC ---
Assessment and note entered by Thea May, PT Assessment Status Discharge ICD-10 Condition Codes (PT) Pain in low back M54.50,Pain in left hip M25.552 Onset April 2025 Subjective Information since coming for therapy, hip does not hurt and able to do the stairs easier; when sitting and would get up, no longer have the stiffness and not hard; have been doing the exercises at home; Reported Pain Level Pain Score Self Report Additional Pain Score Comments pain range in the past week 0-4/10; lateral hip- tight, little pain and sore increase pain: after doing the exercises decrease pain: sit, rest with sleeping, some discomfort with sleeping on her L side, have to move and roll off her L hip; Assessment PT Clinical Summary Irene has received 8 PT sessions. With today's assessment: pain rating of L hip 0-4/ 10; self assessment with LE functional scale rating of 28%; increase strength of trunk and hips, to gross 4+/5; increase flexibility of L piriformis with supine stretch with cross leg; education completed for HEP, body mechanics and importance of stretching and positional changes. The goals were achieved. Discharge PT services. She is to continue with her HEP and monitor posture with sewing, crafts and home tasks. Plan of Care PT Services Indicated No
== END 2025-07-31 14:26 | disposition home or self-care (01) ==
LOC: ANHPT 11:00
PROVIDERS: PCP Family Medicine; Visit Provider Family Medicine
DX: M54.50 Low back pain, unspecified (principal); M25.552 Pain in left hip; Z79.899 Other long term (current) drug therapy
CPT/HCPCS: 97014; 97035; 97110; 97112; 97140; 97161; 97530; G0283